=== PATIENT | female | born 1960 | race Caucasian/White ===

== ENCOUNTER → 2016-05-21 | Outpatient (CLI) | payer BC ==
[~2016-05-21] MED LIST: ASCA500 PO; CALC600T9 PO; COEN75CA PO; DILT120C51 PO; GARL400T4 PO; MAGN400T5 PO; MULT-506 PO; OMEGCAP2 PO; PANT40TA PO; PROB1TAB16 PO; PSYL55.43 PO; SUMA50TA15 PO; TRAM-10 PO
--- NOTE | 2016-05-21 13:08 | DIAGNOSTIC IMAGING REPORT ---
ABDOMEN LIMITED (US)-left upper quadrant CLINICAL HISTORY: Left upper quadrant abdominal pain. COMPARISON STUDY: Abdomen and pelvis CT 09/20/2015. FINDINGS: The spleen measures 10.8 cm in length. The left kidney measures 11.6 cm in length. No perisplenic fluid collections or splenic masses. No left-sided hydronephrosis. No abnormal fluid collections or masses within the left upper quadrant. IMPRESSION: No sonographic abnormality within the left upper quadrant. Electronically signed by: Aman Singh M.D. 05/21/2016 1:07 PM Dictated Date/Time: 05/21/2016 1:02 PM
== END | disposition home or self-care (01) ==
LOC: C.ULTRBC 12:33
PROVIDERS: ATTEND Nurse Practitioner Family
DX: R10.12 Left upper quadrant pain (principal)

== ENCOUNTER → 2016-07-24 | Outpatient (CLI) | payer BC ==
--- NOTE | 2016-07-24 12:59 | DIAGNOSTIC IMAGING REPORT ---
ULTRASOUND ABDOMEN COMPLETE CLINICAL HISTORY: Generalized abdominal pain. Bloating. COMPARISON STUDY: Abdominal CT dated 09/20/2015. Abdominal ultrasound dated 07/21/2013. TECHNIQUE: Real-time, grayscale, and color flow sonography of the abdomen was performed. Images are reviewed in the transverse and longitudinal planes. FINDINGS: Liver: The liver is enlarged and demonstrates heterogeneously increased echotexture consistent with severe hepatic steatosis. Note that this degrades acoustic penetration of the liver. There is no intrahepatic biliary ductal dilatation. The main portal vein is patent. Gallbladder: A 6 mm gallbladder polyp versus adherent sludge is incidentally noted. The gallbladder is otherwise normal in appearance. No shadowing gallstones are identified. There is no gallbladder wall thickening or pericholecystic fluid. A sonographic Harman's sign is reportedly absent. The common bile duct measures up to 0.4 cm in diameter. Pancreas: Visualized portions of the pancreatic head and body are normal in appearance. Spleen: The spleen is normal in size and echotexture, measuring 10.6 cm in length. Kidneys: The kidneys are normal in size and echotexture. There is no hydronephrosis. The right kidney measures 11.2 cm in length and the left kidney measures 11.8 cm in length. No shadowing calculi are identified. A subcentimeter cyst is noted in the right kidney. Abdominal vasculature: Visualized portions of the abdominal aorta and IVC are normal as imaged. Ascites: None. IMPRESSION: 1. No acute sonographic abnormality identified. 2. Hepatomegaly and severe hepatic steatosis. 3. No gallstones are seen. 4. There is a 6 cm gallbladder polyp versus adherent sludge. This was not seen on the 07/21/2013 examination. A precautionary six-month follow-up ultrasound is recommended for reassessment. Electronically signed by: Cb Guerrero M.D. 07/24/2016 12:58 PM Dictated Date/Time: 07/24/2016 12:55 PM
== END | disposition home or self-care (01) ==
LOC: C.ULTR 12:01
PROVIDERS: ATTEND Internal Medicine
DX: R14.0 Abdominal distension (gaseous) (principal); R10.9 Unspecified abdominal pain

== ENCOUNTER → 2016-09-21 | Outpatient (CLI) | payer BC ==
--- NOTE | 2016-09-21 10:45 | DIAGNOSTIC IMAGING REPORT ---
Neck ULTRASOUND HISTORY: CERVICAL LYMPHADENITIS COMPARISON: None. FINDINGS: Real-time sonographic imaging within the left and right posterior neck was performed at the patient's area of interest. No masses, fluid collections, or enlarged lymph nodes identified. IMPRESSION: No sonographic abnormality within the right or left posterior neck. Electronically signed by: Aman Singh M.D. 09/21/2016 10:43 AM Dictated Date/Time: 09/21/2016 10:43 AM
== END | disposition home or self-care (01) ==
LOC: C.ULTRBC 10:25
PROVIDERS: ATTEND Nurse Practitioner Family
DX: I88.9 Nonspecific lymphadenitis, unspecified (principal); R53.83 Other fatigue

== ENCOUNTER → 2016-10-26 | Outpatient (CLI) | payer BC ==
--- NOTE | 2016-10-26 18:08 | DIAGNOSTIC IMAGING REPORT ---
C-SPINE ROUTINE 4 OR 5 VIEWS CLINICAL HISTORY: N54.2 neck pain COMPARISON STUDY: No previous studies for comparison. FINDINGS: There is a slight reversal the normal cervical lordosis. There are degenerative changes most pronounced the C4-5 level. There are no acute fractures or traumatic subluxations. There is minimal bony foraminal encroachment at the C4-5 level on the right. IMPRESSION: Degenerative changes most pronounced at the C4-5 level. Slight reversal of the normal cervical lordosis. No acute fractures or traumatic subluxations. Electronically signed by: Piero Arthur M.D. 10/26/2016 6:06 PM Dictated Date/Time: 10/26/2016 6:05 PM
== END | disposition home or self-care (01) ==
LOC: C.RAD 17:17
PROVIDERS: ATTEND Nurse Practitioner Family
DX: M54.2 Cervicalgia (principal)

== ENCOUNTER → 2016-11-20 | Outpatient (CLI) | payer BC ==
--- NOTE | 2016-11-24 07:41 | MAMMOGRAPHY REPORT ---
BILATERAL DIGITAL SCREENING MAMMOGRAM TOMOSYNTHESIS WITH CAD: 11/20/2016 CLINICAL HISTORY: Routine screening. Patient has no complaints. TECHNIQUE: Breast tomosynthesis in addition to standard 2D mammography was performed. Current study was also evaluated with a Computer Aided Detection (CAD) system. COMPARISON: Comparison is made to exams dated: 11/01/2015 mammogram, 10/05/2014 mammogram, 09/29/2013 m ammogram, 09/16/2012 mammogram, 09/14/2011 mammogram - [facility], and 12/27/2008. BREAST COMPOSITION: The tissue of both breasts is heterogeneously dense, which may obscure small mas ses. FINDINGS: The parenchymal pattern is unchanged. No developing mass, architectural distortion or clus ter of suspicious microcalcifications is seen in either breast. IMPRESSION: ACR BI-RADS CATEGORY 2: BENIGN There is no mammographic evidence of malignancy. A 1 year screening mammogram is recommended. The pa tient will receive written notification of the results. Approximately 10% of breast cancers are not detected with mammography. A negative mammographic report should not delay biopsy if a clinically suggestive mass is present. Kristy Giordano M.D. ay/:11/23/2016 18:25:57 [employer] Officer: Asha CARDENAS(Dann)(M), [facility] letter sent: Normal 1/2 BI-RADS Code: ACR BI-RADS Category 2: Benign
== END | disposition home or self-care (01) ==
LOC: C.MAMM 16:32
PROVIDERS: ATTEND Nurse Practitioner Family
DX: Z12.31 Encounter for screening mammogram for malignant neoplasm of breast (principal)

== ENCOUNTER → 2017-01-06 | Outpatient (CLI) | payer BC ==
--- NOTE | 2017-01-06 12:33 | DIAGNOSTIC IMAGING REPORT ---
ABDOMINAL ULTRASOUND, RIGHT UPPER QUADRANT HISTORY: Elevated transaminase level. COMPARISON: Abdominal ultrasound July 24, [address] of the abdomen and pelvis September 20, 2015. FINDINGS: Hepatic echogenicity is increased consistent with fatty infiltration. No hepatic lesions are identified. There is no biliary ductal dilatation. Common bile duct measures 4 mm in caliber. No shadowing gallstones are identified. A nonmobile 9 mm echogenic focus adherent to the gallbladder wall is noted. Allowing for measurement variability, this is similar to exam of July 24, 2016. This favors a polyp. There is no gallbladder wall thickening. Pancreatic body is normal. The head and tail are partially obscured. There is no right hydronephrosis. Note is made of an 8 mm right renal cyst. IMPRESSION: 1. Fatty infiltration of the liver. 2. No biliary ductal dilatation. 3. Suspected 9 mm gallbladder polyp which is similar to exam of July 24, 2016 when allowing for measurement variability. A nonshadowing calculus or adherent tumefactive sludge could appear similar. A follow-up ultrasound in 6 months is recommended to ensure stability. Electronically signed by: Calvin Toledo M.D. 01/06/2017 12:32 PM Dictated Date/Time: 01/06/2017 12:28 PM
== END | disposition home or self-care (01) ==
LOC: C.ULTR 11:48
PROVIDERS: ATTEND Registered Nurse
DX: R74.0 Nonspecific elevation of levels of transaminase and lactic acid dehydrogenase [LDH] (principal); R93.5 Abnormal findings on diagnostic imaging of other abdominal regions, including retroperitoneum; K76.0 Fatty (change of) liver, not elsewhere classified

== ENCOUNTER → 2017-01-29 | Outpatient (CLI) | payer BC ==
--- NOTE | 2017-01-29 14:25 | DIAGNOSTIC IMAGING REPORT ---
CERVICAL SPINE W/O CLINICAL HISTORY: 56 years-old Female presenting with NECK PAIN. TECHNIQUE: Multidetector CT of the cervical spine was performed without the use of intravenous contrast. IV contrast: None. A dose lowering technique was used consistent with the principles of ALARA (as low as reasonably achievable). COMPARISON: 12/19/2014. CT DOSE (mGy.cm): The estimated cumulative dose is 455.72 mGycm. FINDINGS: Security Control Center Operator topogram: Unremarkable. Slight reversal of normal cervical cervical lordosis centered at C4-5. No acute fracture or subluxation. Minimal degenerative change focally at C4-5 with disc osteophyte complex. No significant osseous or spinal canal narrowing. Paraspinal soft tissues normal. Redemonstration of a subcentimeter right thyroid lobe nodule. Lung apices clear. IMPRESSION: No acute osseous injury of the cervical spine. Mild focal degenerative change at C4-5. Electronically signed by: Avery Metzger M.D. 01/29/2017 2:24 PM Dictated Date/Time: 01/29/2017 2:21 PM
== END | disposition home or self-care (01) ==
LOC: C.CTS 13:53
PROVIDERS: ATTEND Physical Medicine & Rehabilitation
DX: M54.2 Cervicalgia (principal); M89.8X8 Other specified disorders of bone, other site

== ENCOUNTER → 2017-11-29 | Outpatient (CLI) | payer OTHER ==
[~2017-11-29] MED LIST changes: -ASCA500 PO; -CALC600T9 PO; +CLON0.1T12 PO; +COEN100C11 PO; -COEN75CA PO; +DILT120C41 PO; -DILT120C51 PO; +GADAVIST IV PRN; -GARL400T4 PO; -OMEGCAP2 PO; -PANT40TA PO; -PROB1TAB16 PO; +PSYL48.59 PO; -PSYL55.43 PO; +REDCAP2 PO; -TRAM-10 PO
--- NOTE | 2017-11-29 15:26 | DIAGNOSTIC IMAGING REPORT ---
BRAIN COMBO HISTORY: 56 years-old Female HEADACHE, RIGHT PERETEAL CONSTANT acute right-sided headache with elevated blood pressure COMPARISON: MRA head of same day, CT head 11/09/2017 TECHNIQUE: Multiplanar multisequence MRI of the brain was obtained both with and without the use of 6.5 mL Gadavist FINDINGS: [employer] Specialist localizer images demonstrate no gross abnormality. The midline structures including the corpus callosum, brainstem, optic chiasm, pituitary and infundibulum appear unremarkable the sagittal T1 series. There is no cerebellar tonsillar herniation. 6 mm pineal gland cyst incidentally noted. There is no restricted diffusion to suggest acute or subacute infarction. There is no acute intracranial hemorrhage, midline shift, abnormal extra-axial collections, hydrocephalus or intracranial mass. Mild degree of scattered T2/FLAIR hyperintensities about the subcortical and periventricular white matter suggest mild chronic microvascular ischemic changes. Mild cerebral atrophy, likely age-related. There is no abnormal intra-axial or extra-axial enhancement identified. Major flow voids appear patent. The orbits are unremarkable. Mastoid air cells and paranasal sinuses are generally clear. The skull and soft tissues are within normal limits. IMPRESSION: 1. No acute intracranial abnormality identified. 2. No acute infarction or abnormal enhancement. 3. Suggested mild chronic microvascular ischemic changes. The above report was generated using voice recognition software. It may contain grammatical, syntax or spelling errors. Electronically signed by: Solitario Schneider M.D. 11/29/2017 3:25 PM Dictated Date/Time: 11/29/2017 3:20 PM
--- NOTE | 2017-11-29 15:45 | DIAGNOSTIC IMAGING REPORT ---
MRA HEAD WITHOUT CONTRAST HISTORY: 56 years-old Female HEADACHE, RIGHT PERETEAL CONSTANT acute headache with increased blood pressure COMPARISON: MRI brain 11/29/2017, CT head 11/09/2017, MRA of the head 08/23/2007 TECHNIQUE: MRA of the head was obtained with 3-D [id number] sequencing and mid reformats. No IV contrast was administered. FINDINGS: Stock Layer localizer images demonstrate no gross abnormality. Imaged bilateral internal carotid arteries appear widely patent. The bilateral anterior and anterior communicating arteries appear unremarkable. The vertebral arteries appear patent. The basilar artery and posterior cerebral arteries are also widely patent. There is no aneurysm, dissection, high-grade stenosis or proximal branch occlusion. IMPRESSION: Unremarkable MRA without aneurysm, high-grade stenosis or proximal branch occlusion. The above report was generated using voice recognition software. It may contain grammatical, syntax or spelling errors. Electronically signed by: Solitario Schneider M.D. 11/29/2017 3:44 PM Dictated Date/Time: 11/29/2017 3:37 PM
== END | disposition home or self-care (01) ==
LOC: C.MRI 13:50
PROVIDERS: ATTEND Nurse Practitioner Family
DX: R51 Headache (principal)

== ENCOUNTER 2019-10-25 10:17 | Observation (INO) ==
[2019-10-25] MEDS ORDERED: MoRPHine SULFATE 10 MG/ML CARP/VIAL IV STA (10:39)
[2019-10-25] MEDS ORDERED: ONDANSETRON INJ 2 MG/ML 2 ML VIAL IV STA (10:39)
[2019-10-25] MEDS ORDERED: SODIUM CHLORIDE 0.9% 1000ML 1,000 ML IV ONE (10:39)
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
[2019-10-25 11:09] LABS: Basophils # (auto) 0.06 K/uL (0-0.2); Basophils % (auto) 0.5 %; Eosinophils # (auto) 0.01 K/uL (0-0.5); Eosinophils % (auto) 0.1 %; Hematocrit (blood only) 44.5 % (37-47); Hemoglobin 15.5 g/dL (12.0-16.0); Immature Granulocytes # (auto) 0.05 K/uL (0.00-0.02); Immature Granulocytes % (auto) 0.4 %; Lymphocytes # (auto) 1.94 K/uL (1.2-3.4); Lymphocytes % (auto) 14.9 %; Mean Corpuscular Hemoglobin 32.8 pg (25-34); Mean Corpuscular Hgb Conc 34.8 g/dL (32-36); Mean Corpuscular Volume 94.3 fL (80-100); Mean Platelet Volume 9.6 fL (7.4-10.4); Monocytes # (auto) 0.43 K/uL (0.11-0.59); Monocytes % (auto) 3.3 %; Neutrophils # (auto) 10.57 K/uL (1.4-6.5); Neutrophils % (auto) 80.8 %; Platelet Count 255 K/uL (130-400); RDW Coefficient of Variation 12.7 % (11.5-14.5); RDW Standard Deviation 43.5 fL (36.4-46.3); Red Blood Count 4.72 M/uL (4.2-5.4); White Blood Count 13.06 K/uL (4.8-10.8)
[2019-10-25 11:10] LABS: Appearance Urine Clear (Clear); Bacteria Urine Automated 1+ (Negative); Bilirubin Urine Negative (Negative); Blood Urine Negative (Negative); Color Urine Yellow; Epithelial Cell Urine Auto >30 /lpf (0-5); Glucose Urine UA Negative (Negative); Ketones Urine 2+ (Negative); Leukocyte Esterase Urine Trace (Negative); Nitrite Urine Negative (Negative); Protein Urine 3+ (Negative); RBC Urine Automated 0-4 /hpf (0-4); Specific Gravity Urine 1.023 (1.000-1.030); Urobilinogen Urine Negative (Negative)
[2019-10-25 11:27] LABS: Albumin Level 4.1 gm/dl (3.4-5.0); BUN Creatinine Ratio 9.8 (10-20); Calcium 9.7 mg/dl (8.5-10.1); Creatinine Clr Calc Pharmacy 63.7 ml/min; Est GFR (African American) 82.2; Est GFR (Non-African American) 70.9; Potassium 3.9 mmol/L (3.5-5.1)
[2019-10-25 11:30] LABS: Albumin Globulin Ratio 0.8 (0.9-2); Bilirubin,Total 0.4 mg/dl (0.2-1); Globulin 5.3 gm/dl (2.5-4.0); Total Protein 9.4 gm/dl (6.4-8.2)
[2019-10-25] MEDS: MoRPHine SULFATE 10 MG/ML CARP/VIAL IV STA ×2 (11:58→12:51)
[2019-10-25] MEDS ORDERED: IOVERSOL 100ml IV PRN (12:25)
--- NOTE | 2019-10-25 12:45 | CT Scan Report ---
CT abd pelvis IV con only CT DOSE: 499.15 mGy.cm HISTORY: Pain lower abd pain TECHNIQUE: Multiaxial CT images of the abdomen and pelvis were performed following the use of intrave nous contrast. A dose lowering technique was utilized adhering to the principles of ALARA. COMPARISON STUDY: 09/20/2015 FINDINGS: Lung bases are clear. Mild fatty replacement of the liver. Small gallstone. The kidneys enh ance uniformly and are negative for hydronephrosis. Nonobstructive bowel pattern within the abdomen. Chronic sigmoid diverticulosis. Potential minimal desai perimposed acute diverticular change. Appendicolith versus radiopaque contrast within a mildly distended appendix at 9 mm. No evidence for drainable abscess or collection. IMPRESSION: 1. Findings consistent with mild acute appendicitis 2. An appendicolith is present, with the appendiceal diameter of 9 mm. 3. No evidence for drainable abscess or collection. 4. Chronic sigmoid diverticulosis with potential minimal superimposed acute diverticulitis change. ACT 112: Negative or not required by law. The above report was generated using voice recognition software. It may contain grammatical, syntax or spelling errors. Electronically signed by: Cesar Sexton M.D. 10/25/2019 12:44 PM
[2019-10-25] MEDS ORDERED: cefOXitin 2,000 MG/60 ML BAG IV STA (13:09)
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
[2019-10-25] MEDS ORDERED: LIDOCAINE/EPINE 2% 1:100,000 20ML ONE (14:55)
[2019-10-25] MEDS ORDERED: MIDAZOLAM HCL 1 MG/ML 2ML VIAL ONE (15:13)
[2019-10-25] MEDS ORDERED: fentaNYL citrate 100 MCG/2 ML VIAL ONE ×3 (15:13→17:20)
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
[2019-10-25] MEDS ORDERED: ONDANSETRON INJ 2 MG/ML 2 ML VIAL IV PRN ×2 (16:17→19:13)
[2019-10-25] MEDS ORDERED: PROMETHAZINE HCL 6.25 MG in SODIUM CHLORIDE 0.9% 50 ML IV PRN (16:17)
[2019-10-25] MEDS ORDERED: KETOROLAC 30 MG/ML VIAL IV PRN (16:17)
[2019-10-25] MEDS ORDERED: LABETALOL HCL IV 5 MG/ML 20ML IV PRN (16:17)
[2019-10-25] MEDS ORDERED: ATROPINE SULFATE 0.1 MG/ML 10ML SYR IV PRN (16:17)
[2019-10-25] MEDS ORDERED: SUCCINYLCHOLINE CHLORIDE 20 MG/ML 10 ML VIAL IV ONE (16:46)
[2019-10-25] MEDS ORDERED: ONDANSETRON INJ 2 MG/ML 2 ML VIAL ONE (16:46)
[2019-10-25] MEDS ORDERED: LIDOCAINE HCL 2% 2 ML VIAL/AMP(20MG/ML) INFIL ONE (16:46)
[2019-10-25] MEDS ORDERED: ROCURONIUM BROMIDE 10 MG/ML 5 ML VIAL IV ONE (16:46)
[2019-10-25] MEDS ORDERED: DEXAMETHASONE SOD INJ 4 MG/ML VIAL ONE (16:46)
[2019-10-25] MEDS ORDERED: PROPOFOL IV EMULSION 10 MG/ML 20 ML VIAL IV ONE ×2 (16:46→17:28)
[2019-10-25] MEDS ORDERED: ESMOLOL HCL INJ 10 MG/ML 10ML VIAL IV ONE (17:11)
[2019-10-25] MEDS ORDERED: NEOSTIGMINE METHYLSULFATE 5 MG/5 ML SYR ONE (17:11)
[2019-10-25] MEDS ORDERED: GLYCOPYRROLATE 0.2 MG/ML VIAL ONE (17:11)
--- NOTE | 2019-10-25 17:34 | Post Operative Brief Note ---
PG Immediate Post Op with CF Date of Surgery October 25, 2019 Pre & Post Diagnosis Operation Date: 10/25/19 09:55 Pre-Op Diagnosis: Acute acute appendicitis with appendicolith Post-Op Diagnosis: Acute acute appendicitis with appendicolith I identified the patient and participated in the time-out.: Yes Procedure Operation Date: 10/25/19 09:55 Actual Procedures p Laparoscopic Appendectomy - Minor Taveras MD Surgeon Minor Taveras MD Mattress [place] Encaser b blossom roger Estimated Blood Loss 30 Findings Consistent with Post-Op Diagnosis Specimens Specimen Description: a. appendix
--- NOTE | 2019-10-25 17:46 | Operative Report ---
PG Post Operative Report Pre & Post Diagnosis Operation Date: 10/25/19 09:55 Pre-Op Diagnosis: Acute acute appendicitis with appendicolith Post-Op Diagnosis: Acute acute appendicitis with appendicolith I identified the patient and participated in the time-out.: Yes Procedure Operation Date: 10/25/19 09:55 Actual Procedures p Laparoscopic Appendectomy - Minor Taveras MD The patient was brought into the operating room supine position general endotracheal anesthesia 20 minutes we waited for the coronal virus protocol at this point the abdomen was prepped Betadine solution properly draped systemic antibiotics been given a timeout was had patient was identified we made an incision above the umbilicus approximately an inch long deepened to subcutaneous tissue she has had a previous laparoscopic colon resection so we will we opened the fascia enough that up with a hemostat and and will seem like we had a plane of dissection the hemostat went fairly easily we put a 5 mm trocar the current pneumoperitoneum and we had a very difficult time seen and seem like we were probably had a different type of plane whether or not it was omental adhesions therefore we made a bigger incision so I can put my finger in circumferentially and freed up what appeared to be adhesions to the anterior abdominal wall once we had a plane of dissection there were able then to place a solid cannula and the on direct visualization we placed a 5 mm trocar in the right upper quadrant with preemptive local analgesic the camera was inserted that area and what we identified was that the omentum was stuck to the anterior abdominal wall around the umbilicus we had and some bleeding into the omentum and we irrigated it did not seem like we are is under control by the time we were finished exploring that area we did not take down the adhesions there is no evidence of any bowel being around the area at this point we reirrigated the right lower quadrant I was able to grasp the appendix with the right upper quadrant trocar site grasper and elevate and therefore we could see was patient had a very long appendix midportion was pretty inflamed and not ruptured but diffuse areas of dusky discoloration at this point on direct visualization I placed a 5 mm left lower quadrant port with preemptive local analgesic placed the camera in that area and then use the umbilical port in the right upper quadrant port to elevate the appendix create a window around it off the cecum then used a blue stapler fired across the area the mesoappendix was relatively short we were able to take it down with some 5 mm and 10 mm clips there was a small bleeder in the mesoappendix that we controlled easily with the 5 mm clips at this point the appendix was placed in an Endopouch and we took it out through the umbilical port once we had performed this we took the cannula reposition the cannula and were able then to free and inspect the right lower quadrant for any more bleeding there was no evident bleeding appreciated we had the patient left lateral position we placed in supine position with reverse Trendelenburg and irrigated the pelvis we again this inspected the trocar sites to make any bleeding the left lower quadrant trocar was removed there was no evidence of any bleeding we impacted right upper quadrant simply there was no bleeding we took out the Castillo cannula and last got the umbilical the right upper quadrant port the fascia with a we had opened to accommodate the sign cannula we then closed with interrupted Vicryl we had a small bleeder right when we were closing the fascia and it seemed to be just an adhesion from the the omentum that was adherent to that area we control that with sutures. Hemostasis was excellent and we closed the wound with 4-0 Vicryl Steri-Strips applied estimated blood loss approximately 30 cc addendumb blossom roger present throughout the whole case and helped with camera work retraction and wound closure Surgeon Minor Taveras MD Night Shift Manager demarcus roger Estimated Blood Loss 30 Findings Consistent with Post-Op Diagnosis Specimens appendix Description of Procedure fernandoda I attest to the content of the Intraoperative Record and any orders documented therein. Any exceptions are noted below.
[2019-10-25] MEDS: HYDROmorphone INJ 1 MG/ML SYRINGE IV PRN ×4 (18:17→18:32)
--- NOTE | 2019-10-25 18:57 | Anesthesiology Progress Note ---
Date of Service October 25, 2019 Anesthesia Post Procedure Vital Signs Vital Signs: Temp Pulse Pulse Pulse Resp BP BP 10/25/19 18:50 101 H 15 136/85 10/25/19 18:40 36.5 C 102 H 17 147/85 H 10/25/19 18:30 100 H 12 147/82 H 10/25/19 18:20 101 H 16 149/87 H 10/25/19 18:13 36.5 C 105 H 16 141/87 H 10/25/19 16:00 36.8 C 104 H 20 180/92 H 10/25/19 15:11 78 18 171/96 H 10/25/19 14:00 104 H 18 163/97 H 10/25/19 12:21 104 H 19 174/97 H 10/25/19 11:49 89 20 183/99 H 10/25/19 10:25 36.8 C 113 H 18 190/96 H Pulse Ox 10/25/19 18:50 94 10/25/19 18:40 94 10/25/19 18:30 96 10/25/19 18:20 97 10/25/19 18:13 97 10/25/19 16:00 97 10/25/19 15:11 98 10/25/19 14:00 94 10/25/19 12:21 97 10/25/19 11:49 95 10/25/19 10:25 97 Pain Intensity Abdomen: Pain Intensity: 5 Transfer of Care Handoff Completed per policy Notes Mental Status: alert / awake / arousable and participated in evaluation Patient Amnestic to Procedure: Yes Nausea / Vomiting: adequately controlled Pain: adequately controlled Airway Patency, RR, SpO2: stable & adequate BP & HR: stable & adequate Hydration State: stable & adequate Anesthetic Complications: no major complications apparent
[2019-10-25] MEDS ORDERED: MoRPHine SULFATE 4 MG/ML 1 ML CARP\\VIAL IV PRN (19:13)
[2019-10-25] MEDS: MoRPHine SULFATE 2 MG/ML CARP IV PRN ×3 (19:39→23:49)
[2019-10-25] MEDS: LACTATED RINGER'S 1,000 ML IV SCH (19:43)
[2019-10-25] MEDS: cefOXitin 2,000 MG in DEXTROSE 5% 50 ML IV SCH (21:01)
[2019-10-25] MEDS: MAGNESIUM OXIDE 400 MG TAB PO SCH (21:06)
[2019-10-25] MEDS: ROSUVASTATIN CALCIUM 10 MG TAB PO SCH (21:06)
[2019-10-26] MEDS: cefOXitin 2,000 MG in DEXTROSE 5% 50 ML IV SCH ×3 (02:12→13:45)
[2019-10-26] MEDS: LACTATED RINGER'S 1,000 ML IV SCH ×3 (02:58→21:06)
[2019-10-26] MEDS: MoRPHine SULFATE 2 MG/ML CARP IV PRN ×2 (03:01→08:14)
[2019-10-26 07:17] LABS: Basophils # (auto) 0.01 K/uL (0-0.2); Basophils % (auto) 0.1 %; Hematocrit (blood only) 36.8 % (37-47); Hemoglobin 12.5 g/dL (12.0-16.0); Immature Granulocytes # (auto) 0.02 K/uL (0.00-0.02); Immature Granulocytes % (auto) 0.2 %; Lymphocytes # (auto) 1.53 K/uL (1.2-3.4); Lymphocytes % (auto) 11.5 %; Mean Corpuscular Hemoglobin 32.6 pg (25-34); Mean Corpuscular Volume 96.1 fL (80-100); Mean Platelet Volume 9.5 fL (7.4-10.4); Monocytes # (auto) 1.13 K/uL (0.11-0.59); Monocytes % (auto) 8.5 %; Neutrophils # (auto) 10.64 K/uL (1.4-6.5); Neutrophils % (auto) 79.7 %; Platelet Count 197 K/uL (130-400); RDW Coefficient of Variation 12.9 % (11.5-14.5); RDW Standard Deviation 45.4 fL (36.4-46.3); Red Blood Count 3.83 M/uL (4.2-5.4); White Blood Count 13.33 K/uL (4.8-10.8)
[2019-10-26 07:29] LABS: BUN Creatinine Ratio 7.2 (10-20); Creatinine Clr Calc Pharmacy 75.6 ml/min; Est GFR (African American) 101.1; Est GFR (Non-African American) 87.2; Potassium 4.1 mmol/L (3.5-5.1)
[2019-10-26] MEDS: PANTOprazole 40 MG TAB PO SCH (08:14)
[2019-10-26] MEDS: MAGNESIUM OXIDE 400 MG TAB PO SCH ×2 (08:14→20:48)
[2019-10-26] MEDS ORDERED: OXYCODONE/ACETAMINOPHEN 5mg/325mg TAB PO PRN (08:54)
[2019-10-26] MEDS ORDERED: dilTIAZem HCL 240 MG CAPCR PO SCH (09:00)
--- NOTE | 2019-10-26 10:22 | Surgery Progress Note ---
Date of Service October 26, 2019 Assessment & Plan (1) Acute appendicitis: This is a 58y F with a PMH of colon resection for diverticulitis in 2015, prior , and gastritis who presents to the [facility] ED on 10/25/19 with complaints of abdominal pain. Workup in the ED revealed a WBC of [address] a/p with concern for mild acute appendicitis with appendicolith. Patient is acutely tender to palpation in the RLQ. After review of imaging and physical exam we have decided to take the patient to the OR for a laparoscopic appendectomy. Patient NPO with IVF and pre-op abx. Dr. Taveras has obtained surgical consent. First postoperative day Operative report discussed with the patient including the significant lyse adhesion that the patient had previous surgery and the status of her appendix She has more pain than I would expect on the first postoperative day although we did do a lot of dissection to free up the adhesions from the anterior abdominal wall We will reevaluate the patient later today at this point maintain IV fluids and analgesics Subjective Complaining of pain not hungry states that analgesics did not help Physical Exam Physical Exam: Patient looks uncomfortable abdominal exam showed abdomen distended generalized guarding incisions healing well Labs and vitals noted Results & Data Vital Signs (Past 12 Hours) Vital Signs Temp Pulse Pulse Resp BP Pulse Ox 10/26/19 07:42 36.8 C 85 16 121/67 91 10/26/19 03:24 37.0 C 94 H 17 126/78 91 10/26/19 00:25 109 H 10/25/19 23:39 36.9 C 113 H 17 150/88 H 92 PG Care Time/CCT Total # of Minutes Spent Total Time Spent with Patient: Total time spent is greater than 50% in coordination of care (as documented) at patient's floor/unit and/or counseling patient: Coding Level of Care Code None Diagnoses Acute appendicitis K35.80
[2019-10-26] MEDS: OXYCODONE/ACETAMINOPHEN 5mg/325mg TAB PO PRN ×4 (10:44→23:33)
[2019-10-26] MEDS: dilTIAZem HCL 240 MG CAPCR PO SCH (12:42)
[2019-10-26] MEDS: ROSUVASTATIN CALCIUM 10 MG TAB PO SCH (20:48)
[2019-10-27] MEDS: OXYCODONE/ACETAMINOPHEN 5mg/325mg TAB PO PRN ×4 (03:17→11:35)
[2019-10-27] MEDS: LACTATED RINGER'S 1,000 ML IV SCH (04:16)
--- NOTE | 2019-10-27 05:55 | Surgery Progress Note ---
Date of Service October 27, 2019 Assessment & Plan (1) Acute appendicitis: This is a 58y F with a PMH of colon resection for diverticulitis in 2015, prior , and gastritis who presents to the [facility] ED on 10/25/19 with complaints of abdominal pain. Workup in the ED revealed a WBC of [address] a/p with concern for mild acute appendicitis with appendicolith. Patient is acutely tender to palpation in the RLQ. After review of imaging and physical exam we have decided to take the patient to the OR for a laparoscopic appendectomy. Patient NPO with IVF and pre-op abx. Dr. Taveras has obtained surgical consent. First postoperative day Operative report discussed with the patient including the significant lyse adhesion that the patient had previous surgery and the status of her appendix She has more pain than I would expect on the first postoperative day although we did do a lot of dissection to free up the adhesions from the anterior abdominal wall We will reevaluate the patient later today at this point maintain IV fluids and analgesics 10/27/19 Second postoperative day Patient approximately 36 hours postop where she feels much better today she had excellent urine output she tolerated a diet yesterday her abdomen is much softer and her pain seems under control We will reevaluate later this morning and if the patient feels fine we will discharge her Morning lab is pending Plan to send the patient home on oral antibiotic for approximately 5 days will use Augmentin Subjective Had a good day yesterday stating that she realized that morphine does not work well with her presently she is taken oral analgesics she tolerated a diet yesterday Physical Exam Physical Exam: Her abdomen is much softer than yesterday still little bit distended the incisions are free of any ecchymosis there is slight discoloration around the umbilical incision without drainage Results & Data Vital Signs (Past 12 Hours) Vital Signs Temp Pulse Resp BP Pulse Ox 10/26/19 23:37 93 10/26/19 23:16 37.0 C 81 20 129/82 PG Care Time/CCT Total # of Minutes Spent Total Time Spent with Patient: Total time spent is greater than 50% in coordination of care (as documented) at patient's floor/unit and/or counseling patient: Coding Level of Care Code None Diagnoses Acute appendicitis K35.80
[2019-10-27] MEDS ORDERED: HYDROmorphone INJ 1 MG/ML SYRINGE IV PRN (06:03)
[2019-10-27] MEDS: cefOXitin 2,000 MG in DEXTROSE 5% 50 ML IV SCH ×2 (06:44→12:00)
[2019-10-27 06:55] LABS: Basophils # (auto) 0.03 K/uL (0-0.2); Basophils % (auto) 0.4 %; Eosinophils # (auto) 0.05 K/uL (0-0.5); Eosinophils % (auto) 0.6 %; Hematocrit (blood only) 32.6 % (37-47); Hemoglobin 10.7 g/dL (12.0-16.0); Immature Granulocytes # (auto) 0.02 K/uL (0.00-0.02); Immature Granulocytes % (auto) 0.2 %; Lymphocytes # (auto) 2.19 K/uL (1.2-3.4); Lymphocytes % (auto) 25.7 %; Mean Corpuscular Hgb Conc 32.8 g/dL (32-36); Mean Corpuscular Volume 97.6 fL (80-100); Mean Platelet Volume 9.7 fL (7.4-10.4); Monocytes # (auto) 0.84 K/uL (0.11-0.59); Monocytes % (auto) 9.9 %; Neutrophils # (auto) 5.38 K/uL (1.4-6.5); Neutrophils % (auto) 63.2 %; Platelet Count 165 K/uL (130-400); RDW Coefficient of Variation 13.1 % (11.5-14.5); RDW Standard Deviation 46.7 fL (36.4-46.3); Red Blood Count 3.34 M/uL (4.2-5.4); White Blood Count 8.51 K/uL (4.8-10.8)
[2019-10-27] MEDS: PANTOprazole 40 MG TAB PO SCH (07:35)
[2019-10-27] MEDS: MAGNESIUM OXIDE 400 MG TAB PO SCH (07:35)
[2019-10-27] MEDS: dilTIAZem HCL 240 MG CAPCR PO SCH (11:35)
--- NOTE | 2019-10-27 12:33 | Discharge Summary ---
Date of Service October 27, 2019 Admission HPI Per Admitting Provider This is a 58y F with a PMH of colon resection for diverticulitis in 2015, prior , and gastritis who presents to the [facility] ED on 10/25/19 with complaints of abdominal pain. Patient underwent an EGD last week which per report showed concern for gastritis and a non-bleeding ulcer. She said she has had some discomfort & bloating since then, however developed new onset acute abdominal pain of the lower abdomen last night. She says she could not get comfortable prompting her to come to the ED for further evaluation. Workup revealed a WBC of [address] scan with evidence of mild acute appendicitis. She endorses cold sweats, nausea, and small volume emesis. Has also had an increase in diarrhea. Surgery was consulted for further evaluation. Principal Diagnosis Acute appendicitis Discharge Exam Gastrointestinal (Abdomen) Inspection/Auscultation: + abdominal surgical incision (clean, dry); abdomen not distended Percussion/Palpation: abdomen soft Discharge Data Allergies Allergy/AdvReac Type Severity Reaction Status Date / Time cyclobenzaprine Allergy Intermediate HIVES Verified 10/25/19 11:00 olmesartan Allergy Unknown CHRONIC Verified 10/25/19 11:00 DIARRHEA Beta-Blockers AdvReac Mild Lethargic/T Verified 10/25/19 11:00 (Beta-Adrenergic Bloc ired REKHA Inhibitors AdvReac Unknown DRY COUGH Verified 10/25/19 11:00 Consultations 10/25/19 12:58 Consult General Surgery Stat Procedures Performed Operation Date: 10/25/19 09:55 Actual Procedures p Laparoscopic Appendectomy - Minor Taveras MD Ordered Studies 10/25/19 10:39 CT abd pelvis IV con only Stat Hospital Course (1) Acute appendicitis: 58 y/o female presented to the ER with abdominal pain. White count was 13,[address] was consistent with acute appendicitis. She was taken to the operating room for laparoscopic appendectomy and transferred to the surgical floor for observation. The next day she continued to require IV analgesics and antiemetics. By day two she was tolerating diet and oral analgesics and was stable for discharge home. Total Time Total Time Spent Total Time Spent (In Minutes): 10 Discharge Plan Discharge Items Patient Disposition: Home - Self-Care Reason For Visit: APPENDICITIS Discharge Diagnosis: appendectomy Activity: As commented below Lifting: No more than 10 pounds Bathing Comment: ok to shower Driving/Machine Use: Resume 3 days after discharge Non-emergency contact: Surgeon Call non-emergency contact if: you have any medication questions, your pain is not controlled, you have a fever, your temperature is above 101.5 and your wound has increased redness Follow-up/Referrals: Minor Taveras MD [Surgeon] - (Call the office to make an appt for 1 week) Milli Simmons CRNP [Primary Care Provider] - Diet: Regular Addtl Attending Provider Instructions: Pending Studies at Discharge: No Stand-Alone Forms: My [facility] [employer], Smoking Cessation Medications and DC Order Prescriptions: New oxycodone-acetaminophen [Percocet] 5-325 mg tablet 1 - 2 tab PO Q4H PRN (Reason: pain, initial therapy, max 6 daily) Qty: 15 RF: 0 amoxicillin-pot clavulanate [Augmentin] 875-125 mg tablet 1 tab PO BID Qty: 10 RF: 0 Continued diltiazem HCl [Cartia XT] 240 mg capsule,extended release 24hr 240 mg PO QAM RF: 0 flaxseed oil 1,000 mg Capsule 1,000 mg PO QPM RF: 0 garlic 500 mg Capsule 500 mg PO QPM RF: 0 coenzyme Q10 100 mg Capsule 100 mg PO DAILY RF: 0 rosuvastatin 10 mg tablet 10 mg PO QPM RF: 0 multivitamin Tablet,Chewable 1 tab PO DAILY RF: 0 spironolactone 25 mg tablet 50 mg PO DAILY RF: 0 magnesium oxide 500 mg Tablet 500 mg PO BID RF: 0 Probiotic Colon Care 1.5 billion cell Capsule 1 cap PO DAILY RF: 0 pantoprazole 40 mg tablet,delayed release (DR/EC) 40 mg PO DAILY Qty: 30 RF: 5 Discharge Orders: Discharge Order (Routine); Ordered 10/27/19 Ordered By: Mark Sanchez Jr Admission Data Admit Date/Time: 10/25/19 17:44 Attending Provider: Minor Taveras Admit Provider: Minor Taveras Primary Care Provider: Milli Simmons Other Providers: Minor Taveras Coding Level of Care Code D/C Day Management <30 mins Diagnoses Acute appendicitis K35.80 Acute appendicitis type: unspecified acute appendicitis type
== END 2019-10-27 13:32 | disposition home or self-care (01) ==
LOC: ED 10:17 → 3N 15:11 → OR 15:11